=== PATIENT | female | born 1965 | race Caucasian/White ===

== ENCOUNTER 2016-12-05 09:01 | Emergency (ER) | payer SELFPAY ==
[2016-12-05 11:26] VITALS: BP 146/105
--- NOTE | 2016-12-05 11:36 | EDM.PDOC ---
[id number] CHEST PAIN GOING THROUGH BACK & ARM Time Seen by Provider: 12/05/16 09:25 Source of Information: Reports: Patient History Limitations: Reports: No limitations - History of Present Illness INITIAL COMMENTS - FREE TEXT/NARRATIVE: Pt arrived complaining of pain under the left breast and back by the shoulder blade. She states the shoulder blade pain just started today. She hs not gotten sweaty and she was not nauseated. She comes from a strong family history of heart disease. Her brother had an AR in the 40s and her dad had pamela diease early. Onset: today Duration: Hour(s):, Waxing/waning Location: Reports: chest, back Associated Symptoms: Reports: chest pain Left Chest Pain Score (Numeric/FACES): 2 - Related Data Allergies Allergy/AdvReac Type Severity Reaction Status Date / Time aspirin Allergy Shortness Verified 12/05/16 09:27 of Breath Home Meds: Home Meds Albuterol [Proair HFA] 2 puff INH QID PRN 07/20/15 [History] Budesonide/Formoterol [Symbicort 160-4.5 MCG] 2 puff INH BID 07/20/15 [History] Montelukast [Singulair] 1 tab PO DAILY 07/20/15 [History] Past Medical History Respiratory History: Reports: Asthma LEVERMAN History: Reports: , Spontaneous Musculoskeletal History: Reports: Fracture Other Musculoskeletal History: ankle nose fx - Infectious Disease History Infectious Disease History: Reports: Chicken pox, Measles, Mumps - Past Surgical History HEENT Surgical History: Reports: Tonsillectomy Social & Family History - Tobacco Use Smoking Status *Q: Current Every Day Smoker Years of Tobacco use: 23 Packs/Tins Daily: 0.5 Second Hand Smoke Exposure: Yes - Caffeine Use Caffeine Use: Reports: None - Recreational Drug Use Recreational Drug Use: Yes Drug Use in Last 12 Months: Yes Recreational Drug Type: Reports: Marijuana/Hashish Recreational Drug Use Frequency: Rarely ED ROS GENERAL - Review of Systems Review Of Systems: See Below Constitutional: Reports: no symptoms HEENT: Reports: No symptoms Respiratory: Reports: No Symptoms, Other (pain the left chest. No sig pain with deep breathing. ) Cardiovascular: Reports: Chest pain Endocrine: Reports: no symptoms GI/Abdominal: Reports: No symptoms : Reports: no symptoms ED EXAM, GENERAL - Physical Exam Exam: See Below Free Text/Narrative:: pt arrived with left sided chest pain. She is allergic to aspirin so none was given. She also is having pain by the left shoulder blade. Exam Limited By: No limitations General Appearance: alert, anxious Ears: normal TMs Nose: normal inspection Throat/Mouth: Normal inspection Head: atraumatic Neck: normal inspection Respiratory/Chest: no respiratory distress, other (pt has definite tenderness under the left breast and by the lef shoulder blade. ) Cardiovascular: regular rate, rhythm GI/Abdominal: soft Rectal (Female) Exam: Deferred Back Exam: normal inspection Extremities: normal inspection Neurological: alert, oriented, normal cognition Course - Vital Signs Last Recorded V/S: Last Vital Signs Temp 36 C 12/05/16 11:25 Pulse 74 12/05/16 11:25 Resp 16 12/05/16 11:25 BP 146/105 H 12/05/16 11:25 Pulse Ox 92 L 12/05/16 11:25 - Orders/Labs/Meds Labs: Laboratory Tests 12/05/16 12/05/16 12/05/16 Range/Units 10:05 10:05 10:05 WBC 7.3 (4.5-11.0) K/uL RBC 4.95 (3.30-5.50) M/uL Hgb 14.9 (12.0-15.0) g/dL Hct 45.0 (36.0-48.0) % MCV 91 (80-98) fL MCH 30 (27-31) pg MCHC 33 (32-36) % Plt Count 227 (150-400) K/uL Neut % (Auto) 71 H (36-66) % Lymph % (Auto) 19 L (24-44) % Haakon % (Auto) 7 H (2-6) % Eos % (Auto) 3 (2-4) % Baso % (Auto) 1 (0-1) % Sodium 140 (140-148) mmol/L Potassium 3.3 L (3.6-5.2) mmol/L Chloride 104 (100-108) mmol/L Carbon Dioxide 29 (21-32) mmol/L Anion Gap 10.3 (5.0-14.0) mmol/L BUN 12 (7-18) mg/dL Creatinine 0.7 (0.6-1.0) mg/dL Est Cr Clr Drug Dosing 76.04 mL/min Estimated GFR (MDRD) > 60 (>60) Glucose 95 (74-106) mg/dL Calcium 8.6 (8.5-10.1) mg/dL Total Bilirubin 0.5 (0.2-1.0) mg/dL AST 16 (15-37) U/L ALT 23 (12-78) U/L Alkaline Phosphatase 95 (46-116) U/L Creatine Kinase 192 (26-192) U/L Troponin I < 0.017 (0.000-0.056) ng/mL Total Protein 7.3 (6.4-8.2) g/dL Albumin 3.7 (3.4-5.0) g/dL Globulin 3.6 H (2.3-3.5) g/dL Albumin/Globulin Ratio 1.0 L (1.2-2.2) Meds: Medications Discontinued Medications Generic Name Dose Route Start Last Admin Trade Name Freq PRN Reason Stop Dose Admin Ketorolac Tromethamine 60 mg 12/05/16 11:37 12/05/16 11:52 Toradol IM 12/05/16 11:38 Not Given ONETIME ONE - Re-Assessments/Exams Free Text/Narrative Re-Assessment/Exam: 12/05/16 11:40 chest xray was clear, cardiac enzymes were normal. Ekg showed some old changes but nothing acute. Departure - Departure Time of Disposition: 11:41 Disposition: Home, Self-Care 01 Condition: fair Clinical Impression: Atypical chest pain Instructions: Nonspecific Chest Pain, [id number] Referrals: Marcy Sheth PA [Primary Care Provider] - Forms: ED Department Discharge Care Plan Goals: moist warm packs to chest and shoulder, rtc for exercise cardiolyte, tylenol and motrin for pain.
[2016-12-05] MEDS ORDERED: Ketorolac 60 MG/2 ML SDV IM ONE (11:37)
--- NOTE | 2016-12-06 10:08 | CR ---
Chest 2V HISTORY: Chest pain COMPARISON: 07/20/2015. FINDINGS: Cardiac size and pulmonary vessels normal. There are no infiltrates or effusions. No pneum othorax. The osseous structures appear normal. IMPRESSION: No acute pulmonary disease.
== END 2016-12-05 11:52 | disposition home or self-care (01) ==
LOC: JP.ED 09:01
DX: R07.89 Other chest pain (principal); J45.909 Unspecified asthma, uncomplicated; F17.210 Nicotine dependence, cigarettes, uncomplicated; Z98.890 Other specified postprocedural states; Z88.6 Allergy status to analgesic agent; Z79.899 Other long term (current) drug therapy
CPT/HCPCS: 36415; 71020; 71020-26; 80053; 82550; 84484; 85025; 93005; 93010; 99284; 99285-25

== ENCOUNTER 2017-11-25 07:03 | Day surgery (SDC) | payer MEDICAID ==
[2017-11-25] MEDS ORDERED: Lactated Ringers 1,000 ML IV SCH (07:45)
[2017-11-25] MEDS ORDERED: Midazolam 1 MG/ML 2 ML SDV ONE (08:25)
[2017-11-25] MEDS ORDERED: fentaNYL 100 MCG/2 ML SDV ONE (08:25)
[2017-11-25] MEDS ORDERED: Propofol 200 MG/20 ML SDV ONE (08:25)
[2017-11-25 10:04] VITALS: BP 170/104
--- NOTE | 2017-11-28 08:04 | OR ---
DATE OF PROCEDURE: 11/25/2017 PREOPERATIVE DIAGNOSIS: Colon cancer screening. POSTOPERATIVE DIAGNOSIS: Small rectal polyp and diverticulosis. PROCEDURE: Colonoscopy to the cecum with biopsy, resection of small rectal polyp. SURGEON: Tristin Jose MD. ANESTHESIA: IV anesthesia with monitored anesthesia care. INDICATION: This 52-year-old white female is referred for a colonoscopy for screening. She has never had a colonoscopic exam. I counseled her for the procedure, including risks and alternatives, and she gave her informed consent to proceed. DESCRIPTION OF PROCEDURE: The patient was placed in the left lateral decubitus position. IV anesthesia was administered by the Anesthesia Service. Time-out was held. A rectal exam was performed, which was unremarkable. The flexible video Olympus colonoscope was introduced through her anus, up her rectum, and out her colon, all the way to the cecum. En route, in the rectum, we saw a small polyp, this was removed with one bite of the biopsy forceps. Additionally, en route to the cecum, we saw several left-sided diverticula. There was no bleeding or inflammation associated with any of them. Once the cecum was reached, the scope was slowly withdrawn, examining the mucosa throughout. No additional mucosal abnormalities were noted. The scope was retroflexed in the rectum with the distal rectum appearing unremarkable. The scope was straightened and removed. She tolerated the procedure well. Tristin Jose MD /[id number]
== END 2017-11-25 10:00 | disposition home or self-care (01) ==
LOC: JP.SDS 07:03
PROVIDERS: ATTEND Surgery
DX: Z12.11 Encounter for screening for malignant neoplasm of colon (principal); K62.1 Rectal polyp; K57.30 Diverticulosis of large intestine without perforation or abscess without bleeding; J45.909 Unspecified asthma, uncomplicated; F17.200 Nicotine dependence, unspecified, uncomplicated; Z88.6 Allergy status to analgesic agent
CPT/HCPCS: 45380; 88305; J2250; J2704; J3010; J7120

== ENCOUNTER 2022-11-08 12:04 | Emergency (ER) | payer MEDICAID ==
[2022-11-08] MEDS ORDERED: fentaNYL 100 MCG/2 ML SDV IM ONE (12:10)
[2022-11-08 12:44] VITALS: BP 160/81; PULSE 62
== END 2022-11-08 14:49 | disposition home or self-care (01) ==
LOC: JP.ED 12:04
DX: S20.211A Contusion of right front wall of thorax, initial encounter (principal); J45.909 Unspecified asthma, uncomplicated; Z91.012 Allergy to eggs; Z88.2 Allergy status to sulfonamides; Z91.014 Allergy to mammalian meats; Z88.8 Allergy status to other drugs, medicaments and biological substances; W22.09XA Striking against other stationary object, initial encounter
CPT/HCPCS: 71046; 96372; 99283; J3010; 99282

== ENCOUNTER 2024-03-08 07:53 | Day surgery (SDC) | payer MEDICAID ==
[2024-03-08] MEDS ORDERED: fentaNYL 50 MCG/ML SDV ONE (08:04)
[2024-03-08] MEDS ORDERED: Midazolam 1 MG/ML 2 ML SDV ONE (08:04)
[2024-03-08] MEDS ORDERED: Propofol 200 MG/20 ML SDV ONE (08:04)
[2024-03-08] MEDS: Sodium Chloride 0.9% 1,000 ML IV SCH (08:09)
[2024-03-08 10:54] VITALS: BP 155/105; PULSE 80
== END 2024-03-08 11:02 | disposition home or self-care (01) ==
LOC: JP.SDS 07:53
PROVIDERS: ATTEND Surgery
DX: R10.13 Epigastric pain (principal); K22.89 Other specified disease of esophagus; J45.909 Unspecified asthma, uncomplicated
CPT/HCPCS: 00731; 43239; J2250; J2704; J3010; J7030